=== PATIENT | male | born 1980 | race Caucasian/White ===

== ENCOUNTER 2017-11-07 12:27 | Emergency (ER) | payer OTHER, MEDICAID ==
[~2017-11-07] VITALS: Ht 172.7 cm; Wt 86.2 kg
[2017-11-07 12:30] VITALS: Ht 172.7 cm; Wt 86.2 kg
[2017-11-07 13:43] VITALS: BP 131/80
== END 2017-11-07 13:43 | disposition home or self-care (01) ==
LOC: ED 12:27
DX: J01.80 Other acute sinusitis (principal)
CPT/HCPCS: J1885; J3010; Q0162

== ENCOUNTER 2018-05-11 14:30 | Emergency (ER) | payer OTHER, MEDICAID ==
[~2018-05-11] VITALS: Ht 172.7 cm; Wt 77.1 kg
[2018-05-11 17:55] VITALS: BP 130/90
== END 2018-05-11 17:55 | disposition home or self-care (01) ==
LOC: ED 14:30
DX: S02.2XXA Fracture of nasal bones, initial encounter for closed fracture (principal); S20.212A Contusion of left front wall of thorax, initial encounter; S06.0X9A Concussion with loss of consciousness of unspecified duration, initial encounter; W50.0XXA Accidental hit or strike by another person, initial encounter; Y93.89 Activity, other specified; Y92.89 Other specified places as the place of occurrence of the external cause; Y99.8 Other external cause status